=== PATIENT | male | born 1995 | race Caucasian/White ===

== ENCOUNTER 2020-09-23 20:29 | Emergency (ER) | payer OTHER, SELFPAY ==
[2020-02-26 11:21] VITALS: BMI 24.8
[2020-09-23 20:30] VITALS: BP 146/90; PULSE 71; RESP 16; TEMP 36.7; O2SAT 99; BMI 26.6
--- NOTE | 2020-09-23 20:36 | EX.ED.UPPERE ---
HPI History of Present Illness Chief Complaint: Upper Extremity Injury Detail of Chief Complaint: Fell landing on right shoulder now with pain. Informant: patient and spouse/S.O. Occured/Mechanism Mechanism/Context: Yes injury Onset/Context/Timing Onset: Today and Hours Context: Sudden Onset Timing: Continuous Current Severity: Mild Maximum Severity: Mild Narrative Narrative: 24-year-old male history of prior right shoulder surgery secondary to a labrum tear. Today he was chasing after her dog he fell landed directly on his right shoulder denies pain. Denies any other injuries. He is right-hand dominant. Worse pain with range of motion. Prior similar symptoms: Yes Recent Illness/Hospitalization: No PFSH PFSH Medical History Seasonal allergies Home Medications NK 09/23/20 [History Last Taken Unknown] Allergy/AdvReac Type Severity Reaction Status Date / Time No Known Allergies Allergy Verified 09/23/20 20:32 Surgical History c5-c6 ACDF History of shoulder surgery Social History Smoking Status: Never smoker ROS ROS ED ROS Narrative Denies any recent illness. Review of Systems ROS Unobtainable: Denies due to encephalopathy Constitutional Constitutional ED: Denies frequent falls Eyes Eyes: Denies change in vision ENT ENT ED: Denies ear pain or sore throat Cardiovascular Cardiovascular: Denies chest pain Respiratory/Chest Respiratory/Chest: Denies dyspnea Gastrointestinal Gastrointestinal: Denies abdominal pain, diarrhea, nausea or vomiting Genitourinary Genitourinary ED: Denies dysuria Musculoskeletal Musculoskeletal: Denies myalgias Integumentary Denies rash Neurologic Neurologic: Denies headache(s) Psychiatric Psychiatric: Denies depression Endocrine Endocrinology: Denies polyuria Hematologic/Lymphatic Hematologic/Lymphatic: Denies easy bruising Allergic/Immunologic Allergic/Immunologic ED: Denies urticaria EXAM Physical Exam Narrative Exam Narrative: Young male no acute distress. Vital signs stable afebrile. Right shoulder has pain on palpation to the AC joint. There is no tenting. He is able to flex, extend AB and adductor the shoulder but is limited due to pain. There is no gross bony deformity. There is no obvious clavicle fracture. The distal humerus, elbow, forearm, wrist and hand are nontender neurovascular intact with a strong radial pulse. 5/5 organ tuner strength. And normal sensation. He has normal range of motion to the elbow and wrist. Otherwise exam unremarkable. Const Vital Signs: 09/23/20 20:30 Temperature 98.0 F Temperature Source Temporal Pulse Rate 71 Respiratory Rate 16 Blood Pressure 146/90 H Blood Pressure Mean 108 Pulse Ox 99 Oxygen Delivery Method Room Air Positive well nourished and well developed General Appearance ED: well developed HEENT normocephalic and atraumatic Eyes PERRL and EOMs intact bilaterally Neck full ROM and supple General: Negative for tenderness Chest Wall inspection of chest normal and palpation of chest normal Resp normal respiratory effort and clear to auscultation bilaterally Cardio regular rate, regular rhythm and no murmurs GI non-tender, non-distended and no masses Auscultation: normoactive bowel sounds Palpation: soft Back/Spine no CVA tenderness Cervical Spine: Negative for cervical spine tenderness Thoracic Spine / Upper Back: Negative for thoracic spinal tenderness Lumbar Spine / Lower Back: Negative for lumbar spinal tenderness Extremity Extremity Narrative: Right shoulder has pain on palpation to the right AC joint. No tenting. No gross bony deformity. Clavicle appears to be intact. There is no significant swelling. He is able to do some flexion and extension also internal and external rotation and a BN adduction of the right shoulder but there are limited due to pain. Distal humerus, elbow forearm wrist and hand are nontender neurovascular intact. Neuro oriented x3, CN's II-XII intact bilaterally and moves all extremities Sensorium / Orientation: alert, oriented to person, oriented to place and oriented to time Motor Exam: strength 5/5 throughout Psych mental status grossly normal Skin Lesions: no lesions Rashes: no rashes MDM MDM MDM Narrative Medical decision making narrative: Patient with a prior right shoulder labral tear that had surgery. He fell on his shoulder tonight now is having pain with range of motion primarily over the AC joint. X-ray being obtained. He did not waiting for pain. Radiography Diagnostic Testing: Right shoulder x-ray 2 views interpreted by myself shows no acute abnormality. No fracture. No obvious AC separation. No dislocation. No bony abnormalities. I went over the films with the patient and his who works here in radiology. Discharge Plan Triage Chief Complaint: Upper Extremity Injury ED Provider: Checo Oneill Dx/Rx/DC Orders Clinical Impression: AC separation, Shoulder sprain Instructions: ED Shoulder Sprain Prescriptions: No Action NK RF: 0 Primary Care Provider: Sarath Ortega Referrals: Sarath Ortega MD [Primary Care Provider] - Rodríguez Holman DO [STAFF PHYSICIAN] - 3-5 Days if not improving Activity Restrictions/Additional Instructions: Ice to shoulder. Motrin for pain and inflammation. Follow-up with Dr. Tariq Prieto for further evaluation. Disposition Disposition: Home, self care
--- NOTE | 2020-09-23 20:48 | RAD_ITS ---
STUDY: X-RAY - RIGHT SHOULDER REASON FOR EXAM: Male, 24 years old. injury TECHNIQUE: 4 view(s) of the shoulder. COMPARISON: None. FINDINGS: Normal glenohumeral articulation. There is no widening of the coracoclavicular distance. There is widening of the AC joint up to 1.3 cm, but without displacement of the clavicle or widening of the coracoclavicular distance, consistent with a Type II acromioclavicular joint separation. Normal acromion. Normal humeral head and visualized proximal humerus. The soft tissue structures are unremarkable. Normal visualized pulmonary apex. RAD/Shoulder min 2 Views IMPRESSION: Type II acromioclavicular joint separation. Electronically Signed: Titi Beltran MD at 21:10 EDT Tel , Service support ,
--- NOTE | 2020-09-23 21:14 | EDS_ITS ---
HPI History of Present Illness Chief Complaint: Upper Extremity Injury [facility] Medical History Seasonal allergies Home Medications NK 09/23/20 [History Last Taken Unknown] Allergy/AdvReac Type Severity Reaction Status Date / Time No Known Allergies Allergy Verified 09/23/20 20:32 Surgical History c5-c6 ACDF History of shoulder surgery Social History Smoking Status: Never smoker EXAM Physical Exam Const Vital Signs: 09/23/20 20:30 Temperature 98.0 F Temperature Source Temporal Pulse Rate 71 Respiratory Rate 16 Blood Pressure 146/90 H Blood Pressure Mean 108 Pulse Ox 99 Oxygen Delivery Method Room Air MDM MDM MDM Narrative Medical decision making narrative: History and exam are consistent with an AC separation. X-ray of the pain. He did not want any for pain. Lab Data Labs: Right shoulder x-ray peers to have possible widening of the AC joint consistent with an AC separation. He will be placed in a sling and follow-up with orthopedics. Radiography Diagnostic Testing: Radiology Impression Shoulder X-Ray 09/23/20 20:48 IMPRESSION: Type II acromioclavicular joint separation. Electronically Signed: Titi Beltran MD at 21:10 EDT Tel , Service support , Discharge Plan Triage Chief Complaint: Upper Extremity Injury ED Provider: Checo Oneill Dx/Rx/DC Orders Clinical Impression: AC separation, Shoulder sprain Instructions: ED Shoulder Sprain Prescriptions: No Action NK RF: 0 Primary Care Provider: Sarath Ortega Referrals: Sarath Ortega MD [Primary Care Provider] - Rodríguez Holman DO [STAFF PHYSICIAN] - 3-5 Days if not improving Activity Restrictions/Additional Instructions: Ice to shoulder. Motrin for pain and inflammation. Follow-up with Dr. Tariq Prieto for further evaluation. Disposition Disposition: Home, self care
[2020-09-23 21:23] VITALS: RESP 18
== END 2020-09-23 21:23 | disposition home or self-care (01) ==
PROVIDERS: Emergency Provider Emergency Medicine; PCP Family Medicine
DX: S43.101A Unspecified dislocation of right acromioclavicular joint, initial encounter (principal); S43.401A Unspecified sprain of right shoulder joint, initial encounter; W19.XXXA Unspecified fall, initial encounter; Y93.9 Activity, unspecified; Y92.9 Unspecified place or not applicable
CPT/HCPCS: 73030; 99282